=== PATIENT | male | born 1945 | race Caucasian/White ===

== ENCOUNTER 2021-12-27 16:46 | Observation (INO) ==
[2021-12-27 17:33] LABS: Basophils # 0.1 K/mcL (0.0-0.2); Basophils % 0.6 %; Eosinophils % 0.4 %; Hematocrit 48.1 % (37.5-50.1); Hemoglobin 15.9 g/dL (12.9-16.9); Immature Granulocytes % 0.3 % (0-4); Lymphocytes # 1.5 K/mcL (0.6-4.6); Lymphocytes % 14.4 %; Mean Corpuscular HGB Conc 33.1 g/dL (31.6-35.5); Mean Corpuscular Hemoglobin 29.1 pg (28.0-33.3); Mean Corpuscular Volume 87.9 fL (83.0-100.0); Monocytes # 0.8 K/mcL (0.0-1.3); Monocytes % 7.4 %; Neutrophils # 8.1 K/mcL (1.6-8.9); Platelet Count 234 K/mcL (140-400); Red Blood Count 5.47 M/mcL (4.19-5.50); Red Cell Distribution Width 13.7 % (11.5-14.5); Segmented Neutrophils % 76.9 %; White Blood Count 10.5 K/mcL (4.3-11.1)
[2021-12-27] MEDS ORDERED: Isovue-370 500 ML BOTTLE IVP ONE (17:47)
[2021-12-27 17:57] LABS: Troponin I 0.04 ng/mL (< 0.04)
[2021-12-27 18:03] LABS: BUN/Creatinine Ratio 17 (6-26); Blood Urea Nitrogen 20 mg/dL (8-23); Calcium 9.9 mg/dL (8.6-10.3); Carbon Dioxide 26 mEq/L (23-29); Chloride 101 mEq/L (98-107); Glucose 96 mg/dL (70-105); Osmolality,Calculated 288 (280-300); Potassium 3.6 mEq/L (3.5-5.1); Sodium 138 mEq/L (136-145); eGFR For African Americans > 60 (> 60); eGFR For Non-African Americans > 60 (> 60)
[2021-12-27 18:29] LABS: Influenza A PCR Negative (Negative); Influenza B PCR Negative (Negative); Resp. Syncytial Virus PCR Negative (Negative)
[2021-12-27 18:31] LABS: SARS-CoV-2 by PCR (In House) Negative (Negative)
[2021-12-27] MEDS ORDERED: *HR* Heparin 5,000 UNIT/ML VIAL IVP ONE (18:59)
[2021-12-27] MEDS ORDERED: *HR* Heparin 5,000 UNIT/ML VIAL IVP PRN ×2 (18:59)
[2021-12-27] MEDS: Heparin 25,000UNIT/250ML 1/2NS 25,000 UNIT/250 ML IV.SOLN IVC SCH (19:22)
[2021-12-27] MEDS ORDERED: Ondansetron 4 MG/2 ML VIAL IVP PRN (19:58)
[2021-12-27] MEDS ORDERED: Naloxone 0.4 MG/ML INJ IVP PRN (19:58)
[2021-12-27] MEDS ORDERED: Acetaminophen 325 MG TABLET PO PRN (19:58)
[2021-12-27] MEDS ORDERED: Perflutren Lipid Microsphere 1.3 ML in 0.9 % Sodium Chloride 8.7 ML IVP PRN (20:01)
[2021-12-27] MEDS ORDERED: *HR* Metoprolol 5 MG/5 ML VIAL IVP PRN (20:02)
[2021-12-27] MEDS ORDERED: Ipratropium/Albuterol Neb 3 ML IH PRN (20:03)
[2021-12-27 22:13] LABS: INR 1.5; Prothrombin Time 16.5 Seconds (9.4-12.1)
[2021-12-27 22:15] LABS: Heparin anti-factor XA UFH 1.25 IU/mL (0.30-0.70)
[2021-12-27] MEDS ORDERED: Furosemide 40 MG/4 ML VIAL IVP ONE (22:24)
[2021-12-27 22:55] LABS: Bilirubin,Urine Negative (Negative); Blood,Urine Moderate (Negative); Clarity,Urine Clear (Clear); Color,Urine Light-Yellow (Yellow); Glucose,Urine (UA) Normal (Normal); Hyaline Casts,Urine Few per lpf (None Seen); Ketones,Urine Negative (Negative); Leukocyte Esterase,Urine Negative (Negative); Mucus,Urine Few per lpf (None-Few); Nitrite,Urine Negative (Negative); Protein,Urine Negative (Neg-Trace); RBC,Urine 30-50 per hpf (0-3); Specific Gravity,Urine 1.024 (1.010-1.025); Urobilinogen,Urine Normal (Normal); WBC,Urine 0-3 per hpf (0-3)
[2021-12-28 06:04] LABS: Basophils # 0.1 K/mcL (0.0-0.2); Basophils % 0.8 %; Eosinophils % 0.4 %; Hematocrit 46.5 % (37.5-50.1); Hemoglobin 15.7 g/dL (12.9-16.9); Immature Granulocytes % 0.2 % (0-4); Lymphocytes # 1.6 K/mcL (0.6-4.6); Lymphocytes % 15.7 %; Mean Corpuscular HGB Conc 33.8 g/dL (31.6-35.5); Mean Corpuscular Hemoglobin 29.8 pg (28.0-33.3); Mean Corpuscular Volume 88.2 fL (83.0-100.0); Mean Platelet Volume 12.1 fL (9.4-12.4); Monocytes # 0.8 K/mcL (0.0-1.3); Monocytes % 7.3 %; Neutrophils # 7.8 K/mcL (1.6-8.9); Platelet Count 203 K/mcL (140-400); Red Blood Count 5.27 M/mcL (4.19-5.50); Red Cell Distribution Width 13.6 % (11.5-14.5); Segmented Neutrophils % 75.6 %; White Blood Count 10.3 K/mcL (4.3-11.1)
[2021-12-28 06:24] LABS: Alanine Aminotransferase 18 Units/L (7-52); Albumin 4.5 g/dL (3.5-5.7); Albumin/Globulin Ratio 1.7 (1.1-2.2); Alkaline Phosphatase 96 Units/L (34-104); Aspartate Amino Transferase 25 Units/L (13-39); BUN/Creatinine Ratio 16 (6-26); Bilirubin,Direct 0.5 mg/dL (0.0-0.2); Bilirubin,Indirect 2.1 mg/dL (0.0-1.0); Bilirubin,Total 2.6 mg/dL (0.3-1.0); Blood Urea Nitrogen 17 mg/dL (8-23); Calcium 9.5 mg/dL (8.6-10.3); Carbon Dioxide 26 mEq/L (23-29); Chloride 99 mEq/L (98-107); Chol/HDL Ratio 3.5 (0-4.9); Cholesterol 145 mg/dL (< 200); Globulin 2.6 g/dL (2.4-3.5); Glucose 108 mg/dL (70-105); HDL Cholesterol 42 mg/dL (40-59); LDL Cholesterol,Calculated 89 mg/dL (< 100); Osmolality,Calculated 286 (280-300); Potassium 3.1 mEq/L (3.5-5.1); Sodium 137 mEq/L (136-145); Total Protein 7.1 g/dL (6.4-8.9); Triglycerides 71 mg/dL (< 150); eGFR For African Americans > 60 (> 60); eGFR For Non-African Americans > 60 (> 60)
[2021-12-28] MEDS: DilTIAZem CD (24hr) 240 MG CAP.ER.24H PO SCH (07:35)
[2021-12-28] MEDS: lisinopriL 20 MG TABLET PO SCH (07:35)
[2021-12-28] MEDS: Aspirin Enteric Coated 81 MG Tablet PO SCH (07:35)
[2021-12-28] MEDS: Furosemide 40 MG TABLET PO SCH ×2 (09:49→17:19)
[2021-12-28] MEDS: Heparin 25,000UNIT/250ML 1/2NS 25,000 UNIT/250 ML IV.SOLN IVC SCH (14:13)
[2021-12-29 01:25] LABS: Hematocrit 46.2 % (37.5-50.1); Hemoglobin 15.5 g/dL (12.9-16.9); Mean Corpuscular HGB Conc 33.5 g/dL (31.6-35.5); Mean Corpuscular Hemoglobin 29.4 pg (28.0-33.3); Mean Corpuscular Volume 87.5 fL (83.0-100.0); Platelet Count 199 K/mcL (140-400); Red Blood Count 5.28 M/mcL (4.19-5.50); Red Cell Distribution Width 13.6 % (11.5-14.5)
[2021-12-29 01:43] LABS: BUN/Creatinine Ratio 23 (6-26); Blood Urea Nitrogen 23 mg/dL (8-23); Calcium 9.2 mg/dL (8.6-10.3); Carbon Dioxide 24 mEq/L (23-29); Chloride 101 mEq/L (98-107); Glucose 104 mg/dL (70-105); Osmolality,Calculated 288 (280-300); Potassium 3.1 mEq/L (3.5-5.1); Sodium 137 mEq/L (136-145); eGFR For African Americans > 60 (> 60); eGFR For Non-African Americans > 60 (> 60)
[2021-12-29] MEDS: Heparin 25,000UNIT/250ML 1/2NS 25,000 UNIT/250 ML IV.SOLN IVC SCH ×2 (02:55→10:05)
[2021-12-29] MEDS: lisinopriL 20 MG TABLET PO SCH (08:42)
[2021-12-29] MEDS: Furosemide 40 MG TABLET PO SCH (08:42)
[2021-12-29] MEDS: Aspirin Enteric Coated 81 MG Tablet PO SCH (08:42)
[2021-12-29] MEDS: DilTIAZem CD (24hr) 240 MG CAP.ER.24H PO SCH (08:43)
[2021-12-29 10:10] VITALS: BP 139/94; PULSE 106; TEMP 97.6; O2SAT 90
== END 2021-12-29 11:30 | disposition home or self-care (01) ==
LOC: 2ANU 16:46 → EMEROOARM 16:46 → 2ANU 20:51
PROVIDERS: ADMIT Student in an Organized Health Care Education/Training Program; ATTEND Student in an Organized Health Care Education/Training Program